=== PATIENT | female | born 1945 | race Caucasian/White ===

== ENCOUNTER 2019-01-18 05:32 | Day surgery (SDC) | payer MEDICARE, OTHER ==
[2019-01-18] MEDS: MOXIFLOXACIN 0.5% 3 ML OPH OPER (06:40)
[2019-01-18] MEDS: DICLOFENAC 0.1% 2.5 ML OPH OPER (06:40)
[2019-01-18] MEDS: TROPICAMIDE 1% 15 ML OPH OPER (06:40)
[2019-01-18] MEDS: CYCLOPENTOLATE/PHENYLEPH 2 ML OPH OPER (06:40)
[2019-01-18] MEDS: SOD CHLORIDE 0.9% 1,000 ML IV (06:41)
[2019-01-18] MEDS ORDERED: BALANCED SALT SOLN OPH IRRIG 500 ML, GENTAMICIN 4 MG, EPINEPHrine 0.1 MG IRR (07:00)
[2019-01-18] MEDS ORDERED: FENTAnyl 50 MCG/ML VIAL (07:03)
[2019-01-18] MEDS ORDERED: PROPOFOL 20 ML (07:03)
[2019-01-18] MEDS: CARBACHOL 0.01% 1.5 ML OPH INJ (07:49)
[2019-01-18] MEDS: TETRACAINE 0.5% 4 ML OPH (07:49)
[2019-01-18] MEDS: LIDOCAINE 4% (MPF) 5 ML INJ (07:49)
[2019-01-18] MEDS: CEFAZOLIN 1 GM INJ (07:50)
[2019-01-18] MEDS: GENTAMICIN 80 MG INJ (07:55)
[2019-01-18] MEDS: EPINEPHrine 1 MG INJ (07:55)
[2019-01-18] MEDS: DEXAMETHASONE 4 MG/ML 1 ML INJ (07:55)
[2019-01-18] MEDS: NA HYALURONATE/CHONDROITIN 0.5 ML SYG RIGHT EYE (07:56)
[2019-01-18] MEDS ORDERED: ONDANSETRON 4 MG INJ IV (08:00)
[2019-01-18] MEDS ORDERED: LABETALOL HCL 20MG INJ IV (08:00)
[2019-01-18] MEDS ORDERED: OXYCODONE/ACETAMINOPHEN (5/325) TAB PO ×2 (08:00)
[2019-01-18] MEDS ORDERED: FENTAnyl 50 MCG/ML VIAL IV ×3 (08:00)
[2019-01-18] MEDS ORDERED: hydrALAzine 20 MG INJ IV (08:00)
[2019-01-18] MEDS ORDERED: NA HYALURONATE/CHONDROITIN 0.5 ML SYG (08:10)
== END 2019-01-18 09:17 | disposition home or self-care (01) ==
LOC: SDS 05:32
DX: H25.041 Posterior subcapsular polar age-related cataract, right eye (principal); H25.11 Age-related nuclear cataract, right eye; I10 Essential (primary) hypertension; E78.5 Hyperlipidemia, unspecified; Z79.82 Long term (current) use of aspirin
CPT/HCPCS: 66984

== ENCOUNTER 2019-02-15 06:09 | Day surgery (SDC) | payer MEDICARE, OTHER ==
[2019-02-15] MEDS: CYCLOPENTOLATE/PHENYLEPH 2 ML OPH LEFT EYE (07:40)
[2019-02-15] MEDS: DICLOFENAC 0.1% 2.5 ML OPH LEFT EYE (07:40)
[2019-02-15] MEDS: TROPICAMIDE 1% 15 ML OPH LEFT EYE (07:40)
[2019-02-15] MEDS: MOXIFLOXACIN 0.5% 3 ML OPH LEFT EYE (07:40)
[2019-02-15] MEDS: SOD CHLORIDE 0.9% 1,000 ML IV (07:41)
[2019-02-15] MEDS ORDERED: NA HYALURONATE/CHONDROITIN 0.5 ML SYG (08:22)
[2019-02-15] MEDS ORDERED: LIDOCAINE 2% (SDV) 5 ML INJ (09:00)
[2019-02-15] MEDS ORDERED: PROPOFOL 200 MG INJ (09:00)
[2019-02-15] MEDS: EPINEPHrine 1 MG INJ (09:03)
[2019-02-15] MEDS: DEXAMETHASONE 4 MG/ML 1 ML INJ (09:03)
[2019-02-15] MEDS: CEFAZOLIN 1 GM INJ (09:03)
[2019-02-15] MEDS: CARBACHOL 0.01% 1.5 ML OPH INJ (09:03)
[2019-02-15] MEDS: TETRACAINE 0.5% 4 ML OPH (09:04)
[2019-02-15] MEDS: LIDOCAINE 4% (MPF) 5 ML INJ (09:04)
[2019-02-15] MEDS: GENTAMICIN 80 MG INJ (09:04)
[2019-02-15] MEDS: NA HYALURONATE/CHONDROITIN 0.5 ML SYG (09:04)
[2019-02-15] MEDS ORDERED: FENTAnyl 50 MCG/ML VIAL (09:15)
[2019-02-15] MEDS ORDERED: ONDANSETRON 4 MG INJ IV (09:30)
[2019-02-15] MEDS ORDERED: OXYCODONE/ACETAMINOPHEN (5/325) TAB PO ×2 (09:30)
[2019-02-15] MEDS ORDERED: LABETALOL HCL 20MG INJ IV (09:30)
[2019-02-15] MEDS ORDERED: FENTAnyl 50 MCG/ML VIAL IV ×2 (09:30)
[2019-02-15] MEDS ORDERED: BALANCED SALT SOLN OPH IRRIG 500 ML, GENTAMICIN 4 MG, EPINEPHrine 0.1 MG IRR (15:30)
== END 2019-02-15 10:30 | disposition home or self-care (01) ==
LOC: SDS 06:09
DX: H25.12 Age-related nuclear cataract, left eye (principal); I10 Essential (primary) hypertension
CPT/HCPCS: 66984